=== PATIENT | male | born 1955 | race Caucasian/White ===

== ENCOUNTER 2020-11-08 16:53 | Inpatient (IN) | payer BC, MEDICARE ==
[~2020-11-08] VITALS: Ht 190.5 cm; Wt 108.9 kg
[2020-11-08 18:27] LABS: BASOPHILS % 0.3 % (0.0-2.0); HEMATOCRIT. 44.6 % (42.0-52.0); HEMOGLOBIN. 14.4 g/dL (14.0-18.0); LYMPHOCYTES % 20.5 % (20.0-50.0); MEAN CORPUSCULAR HEMOGLOBIN 28.7 pg (28.0-32.0); MEAN CORPUSCULAR VOLUME 88.4 fL (80.0-94.0); MEAN PLATELET VOLUME 8.1 fl (7.4-10.4); MONOCYTES % 8.9 % (2.0-8.0); NEUTROPHILS % 69.3 % (40.0-76.0); PLATELET 229 x1000/uL (130-400); RED BLOOD CELL COUNT 5.04 mill/uL (4.7-6.1); RED CELL DISTRIBUTION WIDTH 14.8 % (11.6-14.6)
[2020-11-08] MEDS ORDERED: SODIUM CHLORIDE 0.9% 1,000 ML IV ONE ×2 (18:30→19:45)
[2020-11-08] MEDS ORDERED: ASPIRIN 325MG EC TABLET PO ONE (18:30)
[2020-11-08 18:34] LABS: CHLORIDE 103 mEq/L (98-107)
[2020-11-08 18:37] LABS: INR 1.1; PROTHROMBIN TIME 11.5 sec (9.6-11.0)
[2020-11-08 18:39] LABS: ETHANOL BLOOD < 10 mg/dL
[2020-11-08 19:09] LABS: *AMPHETAMINES SCREEN URINE PRESUMTIVE POSITIVE (NEGATIVE); *BARBITURATES SCREEN URINE NEGATIVE (NEGATIVE); *BENZODIAZEPINES SCREEN URINE NEGATIVE (NEGATIVE); *COCAINE SCREEN URINE NEGATIVE (NEGATIVE); METHADONE URINE SCREEN NEGATIVE (NEGATIVE)
[2020-11-08 19:10] LABS: CANNABINOID URINE SCREEN NEGATIVE (NEGATIVE); OPIATES URINE SCREEN NEGATIVE (NEGATIVE); PHENCYCLIDINE URINE SCREEN NEGATIVE (NEGATIVE)
[2020-11-08] MEDS ORDERED: IOHEXOL-350 100 ML BOTTLE ONE (19:11)
[2020-11-08] MEDS ORDERED: LORAZEPAM 2MG/ML CPJ IV ONE (19:45)
[2020-11-08] MEDS ORDERED: LORAZEPAM 1MG TABLET PO ONE (20:45)
[2020-11-08] MEDS ORDERED: MAGNESIUM/ALUMINUM HYDROXIDE/SIMETHICONE 30ML UDC PO PRN (22:45)
[2020-11-08] MEDS ORDERED: ONDANSETRON HCL 4MG/2ML INJ IV PRN (22:45)
[2020-11-08] MEDS ORDERED: GUAIFENESIN 200MG/10ML SUGAR FREE UDC PO PRN (22:45)
[2020-11-08] MEDS ORDERED: CLONIDINE 0.1MG TABLET PO PRN (22:45)
[2020-11-08] MEDS ORDERED: DOCUSATE SODIUM 100MG CAPSULE PO PRN (22:45)
[2020-11-09 06:07] LABS: CHLORIDE 108 mEq/L (98-107)
[2020-11-09 06:17] LABS: LDL CHOLESTEROL 92 mg/dL (5-100)
[2020-11-09 06:18] LABS: HDL CHOLESTEROL 35 mg/dL (40-59)
[2020-11-09 06:19] LABS: T4 FREE 1.12 ng/dL (0.76-1.46)
[2020-11-09 06:22] LABS: BASOPHILS % 0.6 % (0.0-2.0); EOSINOPHILS % 0.8 % (0.0-5.0); HEMATOCRIT. 42.3 % (42.0-52.0); HEMOGLOBIN. 14.1 g/dL (14.0-18.0); LYMPHOCYTES % 15.7 % (20.0-50.0); MEAN CORPUSCULAR HEMOGLOBIN 29.3 pg (28.0-32.0); MEAN CORPUSCULAR VOLUME 88.1 fL (80.0-94.0); MEAN PLATELET VOLUME 8.2 fl (7.4-10.4); MONOCYTES % 7.3 % (2.0-8.0); NEUTROPHILS % 75.6 % (40.0-76.0); PLATELET 198 x1000/uL (130-400); RED BLOOD CELL COUNT 4.81 mill/uL (4.7-6.1); RED CELL DISTRIBUTION WIDTH 14.9 % (11.6-14.6)
[2020-11-09] MEDS: ASPIRIN 81MG EC TABLET PO SCH (08:14)
[2020-11-09] MEDS ORDERED: METOPROLOL TARTRATE 25MG TABLET PO SCH (09:00)
[2020-11-09] MEDS: APIXABAN 5 MG TABLET PO SCH ×2 (09:00→17:57)
[2020-11-09] MEDS ORDERED: DILTIAZEM HCL 60MG TABLET PO SCH (11:30)
[2020-11-09] MEDS ORDERED: DILTIAZEM HCL 5MG/ML 5ML VIAL IV NR ×2 (11:30→14:45)
[2020-11-09 21:00] VITALS: BP 143/82
[2020-11-09] MEDS: DILTIAZEM HCL 60MG TABLET PO SCH (21:48)
[2020-11-09] MEDS: ACETAMINOPHEN 325MG TABLET PO PRN (21:50)
[2020-11-10] VITALS: BP_SYST 130; BP_SYST 143; BP_DIAS 75; BP_DIAS 82
[2020-11-10 04:00] VITALS: BP 132/90
[2020-11-10] MEDS: DILTIAZEM HCL 60MG TABLET PO SCH (06:13)
[2020-11-10 08:00] VITALS: BP 117/67
[2020-11-10] MEDS: ASPIRIN 81MG EC TABLET PO SCH (08:40)
[2020-11-10] MEDS: APIXABAN 5 MG TABLET PO SCH ×2 (08:41→16:34)
[2020-11-10] MEDS: HYDROCODONE/ACETAMINOPHEN 5/325MG TABLET PO PRN ×3 (08:41→20:14)
[2020-11-10] MEDS ORDERED: APIX5TAB PO (08:50)
[2020-11-10] MEDS ORDERED: METO-385 PO (08:50)
[2020-11-10] MEDS ORDERED: COLC0.6C3 MT (08:51)
[2020-11-10 12:00] VITALS: BP 128/77
[2020-11-10] MEDS: DILTIAZEM HCL 90MG TABLET PO SCH ×2 (13:04→22:00)
[2020-11-10] MEDS ORDERED: DILTIAZEM HCL 5MG/ML 5ML VIAL IV NR (13:30)
[2020-11-10] MEDS ORDERED: AMIODARONE HCL 50MG/ML 3ML VIAL IV ONE (14:00)
[2020-11-10] MEDS ORDERED: AMIODARONE HCL 150 MG in DEXT 5% WATER 100 ML IV SCH (15:00)
[2020-11-10 16:00] VITALS: BP 100/64
[2020-11-10] MEDS ORDERED: DIGOXIN 500MCG/2ML AMP IV NR (19:45)
[2020-11-10 20:00] VITALS: BP 158/88
[2020-11-10] MEDS: DIGOXIN 500MCG/2ML AMP IV NR ×2 (21:07→21:39)
[2020-11-11] VITALS: BP 129/87
[2020-11-11] MEDS: HYDROCODONE/ACETAMINOPHEN 5/325MG TABLET PO PRN ×2 (03:05→20:42)
[2020-11-11 04:30] VITALS: BP 131/75
[2020-11-11] MEDS: DILTIAZEM HCL 90MG TABLET PO SCH ×2 (06:53→13:04)
[2020-11-11 07:38] VITALS: BP 92/55
[2020-11-11] MEDS: APIXABAN 5 MG TABLET PO SCH ×2 (10:55→16:14)
[2020-11-11] MEDS: ASPIRIN 81MG EC TABLET PO SCH (10:55)
[2020-11-11 12:00] VITALS: BP 123/66
[2020-11-11] MEDS ORDERED: MAGNESIUM 2 G PREMIX 50 ML IV NR (13:00)
[2020-11-11] MEDS: COLCHICINE 0.6MG TABLET PO SCH (13:04)
[2020-11-11 16:00] VITALS: BP 95/59
[2020-11-11] MEDS: DILTIAZEM HCL 120MG CAPSULE CD 24HR PO SCH (16:14)
[2020-11-11] MEDS: ACETAMINOPHEN 325MG TABLET PO PRN (16:14)
[2020-11-11 20:00] VITALS: BP 131/72
[2020-11-12] VITALS: BP 111/73
[2020-11-12 04:00] VITALS: BP 119/78
[2020-11-12 08:00] VITALS: BP 122/92
[2020-11-12] MEDS: COLCHICINE 0.6MG TABLET PO SCH (09:06)
[2020-11-12] MEDS: ASPIRIN 81MG EC TABLET PO SCH (09:06)
[2020-11-12] MEDS: HYDROCODONE/ACETAMINOPHEN 5/325MG TABLET PO PRN ×2 (09:07→18:13)
[2020-11-12] MEDS: APIXABAN 5 MG TABLET PO SCH ×2 (09:07→17:51)
[2020-11-12] MEDS: DILTIAZEM HCL 120MG CAPSULE CD 24HR PO SCH ×2 (09:07→17:51)
[2020-11-12 12:00] VITALS: BP 109/70
[2020-11-12] MEDS ORDERED: AMIODARONE HCL 150 MG in DEXT 5% WATER 97 ML IV NR (12:30)
[2020-11-12] MEDS ORDERED: AMIODARONE HCL 900 MG in DEXT 5% WATER 482 ML IV SCH (12:30)
[2020-11-12 16:00] VITALS: BP 131/75
[2020-11-12 16:37] LABS: CHLORIDE 102 mEq/L (98-107)
[2020-11-12 20:00] VITALS: BP 124/64
[2020-11-13] VITALS: BP 134/81
[2020-11-13 04:00] VITALS: BP 145/89
[2020-11-13] MEDS: HYDROCODONE/ACETAMINOPHEN 5/325MG TABLET PO PRN (05:16)
[2020-11-13 08:00] VITALS: BP 132/90
[2020-11-13] MEDS: COLCHICINE 0.6MG TABLET PO SCH ×2 (09:00→17:54)
[2020-11-13] MEDS: ASPIRIN 81MG EC TABLET PO SCH (09:00)
[2020-11-13] MEDS: APIXABAN 5 MG TABLET PO SCH ×2 (09:00→17:53)
[2020-11-13] MEDS: DILTIAZEM HCL 120MG CAPSULE CD 24HR PO SCH ×2 (09:00→17:55)
[2020-11-13 12:00] VITALS: BP 160/107
[2020-11-13] MEDS: AMIODARONE HCL 200 MG TABLET PO SCH ×2 (15:11→22:03)
[2020-11-13 16:00] VITALS: BP 132/81
[2020-11-13 20:00] VITALS: BP 148/91
[2020-11-14 00:28] VITALS: BP 147/89
[2020-11-14 04:00] VITALS: BP 145/66
[2020-11-14 08:00] VITALS: BP 134/95
[2020-11-14] MEDS: AMIODARONE HCL 200 MG TABLET PO SCH ×2 (10:47→21:05)
[2020-11-14] MEDS: ASPIRIN 81MG EC TABLET PO SCH (10:48)
[2020-11-14] MEDS: DILTIAZEM HCL 120MG CAPSULE CD 24HR PO SCH ×2 (10:48→18:21)
[2020-11-14] MEDS: APIXABAN 5 MG TABLET PO SCH ×2 (10:49→18:21)
[2020-11-14] MEDS: COLCHICINE 0.6MG TABLET PO SCH (13:18)
[2020-11-14] MEDS: ALLOPURINOL 100 MG TABLET PO SCH (15:26)
[2020-11-14 16:00] VITALS: BP 125/71
[2020-11-14 20:00] VITALS: BP 136/80
[2020-11-15] VITALS (8 sets, daily range): BP systolic 123–150; BP diastolic 65–98
[2020-11-15] MEDS ORDERED: MIDAZOLAM HCL 5 MG/5 ML VIAL ONE ×2 (10:00→10:18)
[2020-11-15] MEDS ORDERED: FENTANYL CITRATE/PF 50MCG/ML 2ML VIAL ONE ×2 (10:00→10:17)
[2020-11-15] MEDS ORDERED: LIDOCAINE HCL 2% JELLY 5ML ONE (10:17)
[2020-11-15] MEDS ORDERED: TETRACAINE/BENZOCAINE/BUTAMBEN 20 GM SPRAY MM ONE (10:17)
[2020-11-15] MEDS: AMIODARONE HCL 200 MG TABLET PO SCH ×2 (12:13→21:39)
[2020-11-15] MEDS: DILTIAZEM HCL 120MG CAPSULE CD 24HR PO SCH ×2 (12:14→17:23)
[2020-11-15] MEDS: ASPIRIN 81MG EC TABLET PO SCH (12:14)
[2020-11-15] MEDS: APIXABAN 5 MG TABLET PO SCH ×2 (12:14→17:23)
[2020-11-15] MEDS: ALLOPURINOL 100 MG TABLET PO SCH (17:23)
[2020-11-16] VITALS: BP 132/75
[2020-11-16 04:00] VITALS: BP 127/75
[2020-11-16 08:00] VITALS: BP 133/85
[2020-11-16] MEDS: COLCHICINE 0.6MG TABLET PO SCH (08:01)
[2020-11-16] MEDS: AMIODARONE HCL 200 MG TABLET PO SCH (08:01)
[2020-11-16] MEDS: APIXABAN 5 MG TABLET PO SCH ×2 (08:01→16:13)
[2020-11-16] MEDS: ASPIRIN 81MG EC TABLET PO SCH (08:02)
[2020-11-16] MEDS: DILTIAZEM HCL 120MG CAPSULE CD 24HR PO SCH (08:02)
[2020-11-16 12:00] VITALS: BP 143/71
[2020-11-16 16:00] VITALS: BP 132/75
[2020-11-16] MEDS: ALLOPURINOL 100 MG TABLET PO SCH (16:13)
[2020-11-16 20:00] VITALS: BP 149/75
[2020-11-17] VITALS: BP 138/80
[2020-11-17 04:00] VITALS: BP 143/79
[2020-11-17 08:00] VITALS: BP 151/85
[2020-11-17 08:12] LABS: BASOPHILS % 0.7 % (0.0-2.0); EOSINOPHILS % 1.1 % (0.0-5.0); HEMATOCRIT. 42.8 % (42.0-52.0); HEMOGLOBIN. 14.2 g/dL (14.0-18.0); MEAN CORPUSCULAR VOLUME 87.2 fL (80.0-94.0); MEAN PLATELET VOLUME 7.8 fl (7.4-10.4); MONOCYTES % 7.5 % (2.0-8.0); NEUTROPHILS % 66.7 % (40.0-76.0); PLATELET 275 x1000/uL (130-400); RED CELL DISTRIBUTION WIDTH 14.1 % (11.6-14.6)
[2020-11-17 08:50] LABS: CHLORIDE 106 mEq/L (98-107)
[2020-11-17] MEDS: AMIODARONE HCL 200 MG TABLET PO SCH (09:39)
[2020-11-17] MEDS: ASPIRIN 81MG EC TABLET PO SCH (09:39)
[2020-11-17] MEDS: ALLOPURINOL 100 MG TABLET PO SCH (09:40)
[2020-11-17] MEDS: DILTIAZEM HCL 180MG CAPSULE CD 24HR PO SCH (09:40)
[2020-11-17] MEDS: APIXABAN 5 MG TABLET PO SCH ×2 (09:40→17:59)
[2020-11-17] MEDS: COLCHICINE 0.6MG TABLET PO SCH (09:40)
[2020-11-17 12:00] VITALS: BP 148/82
[2020-11-17] MEDS: AMLODIPINE 5MG TABLET PO SCH (13:22)
[2020-11-17 20:00] VITALS: BP 131/78
[2020-11-18] VITALS: BP 109/88
[2020-11-18 04:00] VITALS: BP 130/85
[2020-11-18 08:00] VITALS: BP 125/77
[2020-11-18] MEDS: COLCHICINE 0.6MG TABLET PO SCH (09:38)
[2020-11-18] MEDS: ASPIRIN 81MG EC TABLET PO SCH (09:38)
[2020-11-18] MEDS: AMIODARONE HCL 200 MG TABLET PO SCH (09:38)
[2020-11-18] MEDS: ALLOPURINOL 100 MG TABLET PO SCH (09:38)
[2020-11-18] MEDS: APIXABAN 5 MG TABLET PO SCH ×2 (09:39→17:42)
[2020-11-18] MEDS: DILTIAZEM HCL 180MG CAPSULE CD 24HR PO SCH (09:39)
[2020-11-18] MEDS: AMLODIPINE 5MG TABLET PO SCH (09:39)
[2020-11-18 12:00] VITALS: BP 126/81
[2020-11-18 16:00] VITALS: BP 132/73
[2020-11-18 20:00] VITALS: BP 141/87
[2020-11-19] VITALS: BP 142/79
[2020-11-19 04:00] VITALS: BP 129/80
[2020-11-19 08:00] VITALS: BP 134/82
[2020-11-19] MEDS: AMIODARONE HCL 200 MG TABLET PO SCH (09:08)
[2020-11-19] MEDS: DILTIAZEM HCL 180MG CAPSULE CD 24HR PO SCH (09:08)
[2020-11-19] MEDS: COLCHICINE 0.6MG TABLET PO SCH (09:08)
[2020-11-19] MEDS: ASPIRIN 81MG EC TABLET PO SCH (09:08)
[2020-11-19] MEDS: APIXABAN 5 MG TABLET PO SCH ×2 (09:09→17:49)
[2020-11-19] MEDS: AMLODIPINE 5MG TABLET PO SCH (09:09)
[2020-11-19] MEDS: ALLOPURINOL 100 MG TABLET PO SCH (09:10)
[2020-11-19 12:00] VITALS: BP 136/76
[2020-11-19 16:00] VITALS: BP_SYST 110; BP_SYST 134; BP_DIAS 60; BP_DIAS 70
[2020-11-19 20:00] VITALS: BP_SYST 118; BP_SYST 120; BP_SYST 137; BP_DIAS 65; BP_DIAS 75; BP_DIAS 91
[2020-11-20] VITALS: BP 129/80
[2020-11-20 04:00] VITALS: BP 120/76
[2020-11-20 08:00] VITALS: BP 128/77
[2020-11-20] MEDS: COLCHICINE 0.6MG TABLET PO SCH (08:48)
[2020-11-20] MEDS: ASPIRIN 81MG EC TABLET PO SCH (08:49)
[2020-11-20] MEDS: DILTIAZEM HCL 180MG CAPSULE CD 24HR PO SCH (08:49)
[2020-11-20] MEDS: ALLOPURINOL 100 MG TABLET PO SCH (08:49)
[2020-11-20] MEDS: AMIODARONE HCL 200 MG TABLET PO SCH (08:49)
[2020-11-20] MEDS: APIXABAN 5 MG TABLET PO SCH ×2 (08:49→17:32)
[2020-11-20] MEDS: AMLODIPINE 5MG TABLET PO SCH (08:50)
[2020-11-20 12:00] VITALS: BP 154/98
[2020-11-20 13:00] VITALS: BP 146/79
[2020-11-20 16:00] VITALS: BP 154/81
== END 2020-11-20 20:10 | disposition left against medical advice (07) | DRG 309 ==
LOC: ER 16:53 → EDBD 20:42 → MICUSO 20:42 → EDBEDREQ 20:44 → EDBEDREQTM 20:44 → 5WST 11-09 19:46 → 8WST 11-14 00:17 → 3WST 11-15 01:33 → 6EST 11-17 14:53
PROVIDERS: ADMIT Hospitalist; ATTEND Hospitalist
PROC: 5A2204Z Restoration of Cardiac Rhythm, Single (ICD-10-PCS; principal; 2020-11-15)
DX: I47.1 Supraventricular tachycardia (principal); I50.32 Chronic diastolic (congestive) heart failure; D68.59 Other primary thrombophilia; I48.0 Paroxysmal atrial fibrillation; M94.0 Chondrocostal junction syndrome [Tietze]; I48.4 Atypical atrial flutter; F10.10 Alcohol abuse, uncomplicated; I11.0 Hypertensive heart disease with heart failure; F15.10 Other stimulant abuse, uncomplicated; Z20.822 Contact with and (suspected) exposure to COVID-19; Y90.9 Presence of alcohol in blood, level not specified; Z87.891 Personal history of nicotine dependence; Z82.49 Family history of ischemic heart disease and other diseases of the circulatory system
CPT/HCPCS: 36415; 71045; 71275; 80048; 80053; 80061; 80305; 80320; 83735; 83880; 84439; 84443; 84484; 85025; 87635; 92960; 93005; 93306; 93312; 93970; 99291; J0282; J1160; J2060; J2250; J3010; J3475; J3490; J7030; J7040; J7060; Q9967; G0480